=== PATIENT | female | born 1960 | race Caucasian/White ===

== ENCOUNTER 2022-08-17 09:08 | Outpatient (CLI) | payer OTHER, SELFPAY ==
--- OUTSIDE RECORDS SUMMARY | 2022-08-18 06:58 | XMS_ITS | Continuity of Care Document ---
Author Name Unknown Organization [facility] Address [address] [address] [place] [address] Phone Care Team Providers Care Manager Erp Name Role Phone Caenlo LUNA, Debbie Unavailable Unavailable Allergies, Adverse Reactions, Alerts Substance Reaction Status Criticality Penicillins unknown(moderate) Active No Informa tion Medications Medication Instructions Dosage Effective Dates (start - stop) Status Comments pantoprazole 40 mg tablet,delayed release take 1 tablet by oral route every day 40 MG - Active melatonin 10 mg tablet take 1 Tablet by Oral route once 1 Tablet - Active Super B Complex + C 150 mg tablet take 1 tablet by oral route every day - Active Co Q-10 200 mg capsule take 1 Tablet by Oral route every day 1 Tablet - Active flaxseed 1,000 mg capsule take 1 Capsule by Oral route every day - Active Vitamin D3 2,000 unit tablet take 1 Tablet by Oral route every day 1 Tablet - Active omega 7-ewr-qxx-fish oil 1,000 mg (120 mg-180 mg) capsule take by Oral route every day 800 mg Not Available - Active folic acid 400 mcg tablet take 1 tablet by oral route every day 0.4 MG - Active Ambien 10 mg tablet take 1 tablet by oral route every day at bedtime 10 MG - Active Aleve 220 mg tablet take 1 tablet by oral route every 12 hours as needed 220 MG - Active Glucosamine 500 mg tablet take 1 Tablet by Oral route every day 1 Tablet - Active Fiber Gummies (with chromium) 2 gram-100 mcg chewable tablet - Active Protonix 20 mg tablet,delayed release take 1 tablet by ORAL route 2 times every day 20 MG - No Longer Active Acidophilus capsule take 1 Capsule by Oral route every day 1 Capsule - No Longer Active Lexapro 10 mg tablet take 1 tablet by oral route every day 10 MG - No Longer Active Procedures Procedure Date Ugi Endo; W/bx 1/mx Level Iv-surg Path Gross/micro 16 Colonoscopy Flex; Dx (sep Pro) 15 Advance Directives Directive Yes / No Effective Date File Name No Information Encounters Encounter Description Practice Location Reason(s) For Visit Diagnoses Date Provider Providers Copied on Encounter [facility], [address] [address], [place], [id number], tel:[phone] [facility] Hiatal herniaHeartburnUnsp ecified abdominal painDiaphragmatic hernia without obstruction or gangrene 6 Canelo Lewis. [address] [facility], [facility] [address], [place], [place], [id number] , [place]. tel: [phone] [facility], [address] [address], [place], [place], [id number], tel:[phone] [facility] Screening for colon cancerColon Cancer Screening 5 Tiffani Maynard. [address] [facility], [facility] [address], [place], [place], [id number] , [place]. tel: [phone] Family History Family Member Type Diagnosis Age At Onset Mother Problem (finding) Alive and well Sister Problem (finding) Alive and well Brother Problem (finding) Daughter Problem (finding) Alive and well Brother Problem (finding) Alive and well Son Problem (finding) Alive and well Father Problem (finding) Leukemia Payers Payer name Insurance type Covered democrat ID Authoriza tion(s) [employer] [place] [id number] Social History Type Description Quantity Date Captured Comments Alcohol Use Details Unknown Caffeine Use Details Unknown Tobacco Use Status No Information Smoking Status Former smoker Sex Female Vital Signs Date / Time: Height Weight BMI Pulse Rate Blood Pressure Temperature Respiratory Rate Body Surface Area Head Circumference Head Circ. Percentile Wt./Mau. Percentile BMI percentile Pulse Ox Inhaled Ox 10:04 AM 68.00 in 77.100 kg (170.00 lbs) 25.8 0 kg/m eter (2) 69 /min 104/71 mm[Hg] 0.00 F 16 /min 100 % 10:45 AM 0.00 in 0.000 kg (0.00 lbs) 25.8 0 kg/m eter (2) 71 /min 114/68 mm[Hg] 0.00 F 16 /min 100 % Chief Complaint And Reason For Visit No Information Reason For Referral Reason For Referral No Information Plan Of Treatment Date Type Action Status No Information History Of Present Illness Encounter Date Complaint History Of Prese nt Illness No Information Functional Status Date Functional Assessmen t No Information Instructions Date Instruction Additional Infor dot Colon Cancer Prevention Related to Screening for colon cancer Hemorrhoids Related to Scree prasanna for colon cancer Assessments Type Assessment Date assessment Hiatal hernia Patient Care Teams Name Effective Dates (start - stop) Status Members No Information
== END 2022-08-17 09:09 | disposition home or self-care (01) ==
LOC: NFLDREF 08-18 06:56
PROVIDERS: PCP Physician Assistant Medical; Referring Provider Physician Assistant Medical; Visit Provider Physician Assistant Medical
DX: E78.5 Hyperlipidemia, unspecified (principal); E78.01 Familial hypercholesterolemia; E87.0 Hyperosmolality and hypernatremia; R73.03 Prediabetes; N39.0 Urinary tract infection, site not specified; G47.00 Insomnia, unspecified; F51.01 Primary insomnia; N30.00 Acute cystitis without hematuria; E04.1 Nontoxic single thyroid nodule
CPT/HCPCS: 80053; 80061

== ENCOUNTER 2022-09-02 09:37 | Outpatient (CLI) | payer OTHER, SELFPAY ==
[2022-09-02 21:30] LABS: Chlamydia DNA Amplified* NOT DETECTED (No Detected); GC DNA Amplified* NOT DETECTED (No Detected)
== END 2022-09-02 09:38 | disposition home or self-care (01) ==
PROVIDERS: PCP Physician Assistant Medical; Visit Provider Obstetrics & Gynecology
DX: N95.2 Postmenopausal atrophic vaginitis (principal); K64.4 Residual hemorrhoidal skin tags; Z11.3 Encounter for screening for infections with a predominantly sexual mode of transmission
CPT/HCPCS: 86592; 86703; 86706; 86803; 87340; 87491; 87591

== ENCOUNTER 2022-12-27 10:18 | Outpatient (CLI) | payer OTHER, SELFPAY ==
--- OUTSIDE RECORDS SUMMARY | 2022-12-30 07:32 | XMS_ITS | Continuity of Care Document ---
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 [address] [facility], [facility] [address], [place], [place], [id number] , [place]. tel: [phone] [facility], [address] [address], [place], [place], [id number], tel:[phone] [facility] Screening for colon cancerColon Cancer Screening 5 Tiffani Maynard. [address] [facility], [facility] [address], [place], [place], [id number] , [place]. tel: [phone] Family History Family Member Type Diagnosis Age At Onset Mother Problem (finding) Alive and well Sister Problem (finding) Alive and well Brother Problem (finding) Daughter Problem (finding) Alive and well Brother Problem (finding) Alive and well Son Problem (finding) Alive and well Father Problem (finding) Leukemia Payers Payer name Insurance type Covered green party ID Authoriza tion(s) [employer] [id number] Social History Type Description Quantity Date Captured [...] For Referral Reason For Referral No Information History Of Present Illness Encounter [...]
== END 2022-12-27 10:19 | disposition home or self-care (01) ==
LOC: NFLDREF 12-30 07:30
PROVIDERS: PCP Physician Assistant Medical; Referring Provider Physician Assistant Medical; Visit Provider Physician Assistant Medical
DX: E78.01 Familial hypercholesterolemia (principal)
CPT/HCPCS: 80061; 84450; 84460

== ENCOUNTER 2023-02-27 07:00 | Outpatient (CLI) | payer OTHER, SELFPAY ==
--- NOTE | 2023-02-27 07:15 | CRLHL7_ITS ---
For Patients: As a result of the Century Cures Act, medical imaging exams and procedure reports are released immediately into your electronic medical record. You may view this report before your referring provider. If you have questions, please contact your health care provider. INDICATION: Elevated liver function tests. TECHNIQUE: Right upper quadrant ultrasound. FINDINGS: There are 2 small well-circumscribed echogenic foci along the wall of the gallbladder which do not shadow or move. These likely reflect polyps. The largest measures 4.6 mm and the smaller measures 2.8 mm. Follow-up for gallbladder polyps less than 6 mm is not typically recommended. No stones. No gallbladder wall thickening. No pericholecystic fluid. No sonographic Roldan`s sign. The gallbladder wall measures 2 mm. The common bile duct measures 4 mm. The liver is normal without masses or biliary dilatation. The pancreas is unremarkable. The proximal IVC and proximal abdominal aorta are normal. The proximal abdominal aorta measures 2.2 cm in AP dimension. The right kidney is negative for hydronephrosis. It measures 11.8 x 4.4 x 5.0 cm. The right renal cortex measures 1.3 cm. IMPRESSION: 1. Two small echogenic non shadowing nonmobile foci in the gallbladder compatible with gallbladder polyps. 2. The examination is otherwise negative. Dictated by Ramesh Cabello MD @ 02/28/2023 10:02:28 AM (Electronically Signed)
--- NOTE | 2023-02-27 08:45 | CRLHL7_ITS ---
For Patients: As a result of the Century Cures Act, medical imaging exams and procedure reports are released immediately into your electronic medical record. You may view this report before your referring provider. If you have questions, please contact your health care provider. BILATERAL SCREENING MAMMOGRAM WITH COMPUTER-AIDED DETECTION AND TOMOSYNTHESIS TECHNIQUE: CC and MLO views were obtained. These mammographic images have been obtained using full-field digital technique. These mammographic images were interpreted with the benefit of computer-aided detection. Breast Tomosynthesis was used in this interpretation. COMPARISON FILM: 04/07/22, 10/16/20, 06/15/17. FINDINGS: The breasts are heterogeneously dense, which may obscure small masses IMPRESSION: There is no radiographic evidence for malignancy. ASSESSMENT: BI-RADS Category 2: Benign RECOMMENDATION: Routine screening mammogram in 1 year. A lay language report of this examination will be provided to the patient. Ramesh Cabello M.D. Diagnostic/Nuclear Medicine Radiologist [email or web address] LESLY/Dictated by: Ramesh Cabello MD @ 02/28/2023 8:41:00 AM (Electronically Signed)
== END 2023-02-27 07:01 | disposition home or self-care (01) ==
PROVIDERS: PCP Physician Assistant Medical; Visit Provider Physician Assistant Medical
DX: R79.89 Other specified abnormal findings of blood chemistry (principal); Z12.31 Encounter for screening mammogram for malignant neoplasm of breast; R92.2 Inconclusive mammogram
CPT/HCPCS: 76705; 77063; 77067

== ENCOUNTER 2023-05-03 15:08 | Emergency (ER) | payer OTHER, SELFPAY ==
[2023-05-03] VITALS (15 sets, daily range): BP systolic 115–150; BP diastolic 66–93; PULSE 59–68; RESP 18; TEMP 36.5; O2SAT 97–100; BMI 22.7
--- NOTE | 2023-05-03 15:50 | US_ITS ---
Patient: JOS TREVINO Facility:?[facility] Patient ID:?[id number] Site Patient ID:?[id number]. Site :?[id number] Study:?US-Abdomen GALLBLADDER-05/03/2023 4:36:48 PM Ordering Physician:TERRI MATHUR Final Report: Indication: Postprandial abdominal pain Technique: Multiple transverse and longitudinal sonographic grayscale images of the right upper quadrant of the abdomen were obtained, supplemented with color, power, and spectral Doppler imaging. Comparison: 02/27/2023 Findings: CBD: 0.3 cm. Gallbladder: Negative sonographic Roldan sign. Contracted. Multiple polyps are again seen measuring up to 0.3 centimeter. Impression: No sonographic evidence of acute cholecystitis. Gallbladder polyps measuring up to 0.3 centimeter. Dictated by Braulio Kuhn MD @ 05/03/2023 4:45:29 PM Signed by:?Braulio Kuhn MD @05/03/2023 4:45:29 PM (Electronic Signature)
--- NOTE | 2023-05-03 15:52 | ED_ITS ---
HPI - General Adult General Chief complaint: Unspecified Complaint, Adult <Mushtaq Buckley MD - Last Filed: 05/08/23 08:30> Stated complaint: dark urine, stomach pain <Mushtaq Buckley MD - Last Filed: 05/08/23 08:30> Time Seen by Provider: 05/03/23 15:25 <Mushtaq Buckley MD - Last Filed: 05/08/23 08:30> History of Present Illness HPI narrative: Patient is a 62 year white female with a history of intermittent epigastric pain after eating for the last couple of months on and off. 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 She gets occasional epigastric pain after she eats it is increasing in intensity and frequency. She apparently had an ultrasound done fairly recently that was unremarkable, with the exception of what appear to be gallbladder polyps. Certainly stone could not be excluded with these. There was no evidence of gallbladder distention or common duct distention. There was no gallbladder wall thickening or pericholecystic inflammation evident. The patient reports that this is become more frequent or she gets a postprandial epigastric pain and has had dark urine. 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 She has not had a history of jaundice not had a history of hepatitis. She has not traveled recently. She has had no significant weight loss by her history to me no chest pain, no shortness of breath, no fevers. <Mushtaq Buckley MD - Last Filed: 05/08/23 08:30> Related Data Home medications: Home Medications Medication Instructions Recorded Confirmed pseudoephedrine HCl 120 mg 120 mg PO Q12H 05/19/22 01/31/23 tablet,extended release (Sudafed 12 Hour) vitamin B comp and C no.3 15 mg-10 1 cap PO QDAY 05/19/22 01/31/23 mg-50 mg-5 mg-300 mg capsule (B Complex Plus Vitamin C) antiarthritic combination no.2 900 mg PO 07/20/22 01/31/23 mg tablet (glucosamine-chondroitin) cholecalciferol (vitamin D3) 25 50 mcg PO QDAY 07/20/22 01/31/23 mcg (1,000 unit) capsule magnesium citrate 100 mg capsule 100 mg PO QDAY 07/20/22 01/31/23 zinc gluconate 50 mg tablet 50 mg PO QDAY 07/20/22 01/31/23 cranberry extract 200 mg capsule 200 mg PO QDAY 09/02/22 01/31/23 gabapentin 300 mg capsule mg PO 09/02/22 01/31/23 turmeric 400 mg capsule mg PO 09/02/22 01/31/23 Previous Rx's Medication Instructions Recorded pantoprazole 20 mg tablet,delayed See Rx Instructions .Route 05/19/22 release .COMPLEX #90 tabs estradiol 0.01% (0.1 mg/gram) 0.5 g vaginal 2XW #42.5 grams 07/20/22 vaginal cream (Estrace) trazodone 50 mg tablet 50 - 150 mg (1 - 3 x 50 mg) PO 08/17/22 QDAY #90 tabs <Mushtaq Buckley MD - Last Filed: 05/08/23 08:30> Allergies/adverse reactions: Allergies Allergy/AdvReac Type Severity Reaction Status Date / Time Penicillins Allergy Unknown Verified 05/03/23 15:22 <Mushtaq Buckley MD - Last Filed: 05/08/23 08:30> Review of Systems Status of ROS: Reports: 6 or more systems reviewed and unremarkable except as noted in History and below <Mushtaq Buckley MD - Last Filed: 05/08/23 08:30> [facility] Medical History: Medical History (Updated 05/04/23 @ 10:39 by Kunal Alford PA-C) Elevated liver function tests ?R79.89 - Other specified abnormal findings of blood chemistry (ICD-10) Postprandial abdominal pain in right upper quadrant ?R10.11 - Right upper quadrant pain (ICD-10) Urinary tract infection ?N39.0 - Urinary tract infection, site not specified (ICD-10) History of depression ?Z86.59 - Personal history of other mental and behavioral disorders (ICD-10) History of breast lump ?Z87.898 - Personal history of other specified conditions (ICD-10) Arthritis ?M19.90 - Unspecified osteoarthritis, unspecified site (ICD-10) History of anxiety ?Z86.59 - Personal history of other mental and behavioral disorders (ICD-10) History of anemia ?Z86.2 - Personal history of diseases of the blood and blood-forming organs and certain disorders involving the immune mechanism (ICD-10) <Mushtaq Buckley MD - Last Filed: 05/08/23 08:30> Surgical History: Surgical History H/O wisdom tooth extraction ?K08.409 - Partial loss of teeth, unspecified cause, unspecified class (ICD- 10) H/O skin graft ?Z94.5 - Skin transplant status (ICD-10) H/O tubal ligation ?Z98.51 - Tubal ligation status (ICD-10) History of endoscopy ?Z98.890 - Other specified postprocedural states (ICD-10) History of lumpectomy ?Z98.890 - Other specified postprocedural states (ICD-10) History of endometrial ablation ?Z98.890 - Other specified postprocedural states (ICD-10) <Mushtaq Buckley MD - Last Filed: 05/08/23 08:30> Family History: Family History Father Leukemia, Onset Age: 50 Mother Varicose vein of leg High blood pressure Brother Diabetes <Mushtaq Buckley MD - Last Filed: 05/08/23 08:30> Social History: Social History Narrative: Former smoker, stopped smoking many years ago quit 2004. Drinks alcohol 1 glass of wine per day. 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 Smoking Status: Former smoker Do you use any of these nicotine containing products: None Second hand tobacco smoke exposure: No How often do you have a drink containing alcohol: monthly or less How often do you have six or more drinks on one occasion: Never AUDIT-C Alcohol total score: 1 Non-prescribed substance use: denies use service: No <Mushtaq Buckley MD - Last Filed: 05/08/23 08:30> Exam Narrative: Exam Narrative: Objective: Patient's vital signs are within normal limits O2 sat is excellent, afebrile HEENT shows mild scleral icterus No facial asymmetry Mouth clear Neck is supple Pulse regular Abdomen is benign soft there is mild epigastric tenderness palpation but no palpable mass no rebound or peritonitis Extremities are no edema neurologic nonfocal good peripheral perfusion noted Skin shows no evidence of rashing <Mushtaq Buckley MD - Last Filed: 05/08/23 08:30> Const: Vital Signs, click to edit/add: Vital Signs - 24 hr 05/03/23 15:17 05/03/23 16:34 05/03/23 16:35 Temperature 97.7 F Pulse Rate 64 65 Pulse Rate [Pulse Oximeter] 68 Respiratory Rate 18 Blood Pressure 131/69 Blood Pressure [Ri ght Upper Arm] 115/69 Pulse Oximetry 97 100 99 Oxygen Delivery Me thod Room Air 05/03/23 16:45 05/03/23 17:00 05/03/23 17:02 Temperature Pulse Rate 62 67 62 Pulse Rate [Pulse Oximeter] Respiratory Rate Blood Pressure 121/66 Blood Pressure [Ri ght Upper Arm] Pulse Oximetry 99 100 100 Oxygen Delivery Me thod 05/03/23 17:31 05/03/23 18:01 05/03/23 19:04 Temperature Pulse Rate Pulse Rate [Pulse Oximeter] Respiratory Rate Blood Pressure 124/72 116/67 125/76 Blood Pressure [Ri ght Upper Arm] Pulse Oximetry Oxygen Delivery Me thod 05/03/23 20:01 05/03/23 20:08 05/03/23 20:11 Temperature Pulse Rate 60 59 L Pulse Rate [Pulse Oximeter] Respiratory Rate Blood Pressure 133/74 139/77 Blood Pressure [Ri ght Upper Arm] Pulse Oximetry 97 97 Oxygen Delivery Me thod 05/03/23 20:12 05/03/23 21:02 05/03/23 22:02 Temperature Pulse Rate 60 Pulse Rate [Pulse Oximeter] Respiratory Rate Blood Pressure 150/93 H 127/79 Blood Pressure [Ri ght Upper Arm] Pulse Oximetry 97 Oxygen Delivery Me thod <Mushtaq Buckley MD - Last Filed: 05/08/23 08:30> Vital Signs, click to edit/add: Vital Signs - 24 hr 05/03/23 15:17 05/03/23 16:34 05/03/23 16:35 Temperature 97.7 F Pulse Rate 64 65 Pulse Rate [Pulse Oximeter] 68 Respiratory Rate 18 Blood Pressure 131/69 Blood Pressure [Ri ght Upper Arm] 115/69 Pulse Oximetry 97 100 99 Oxygen Delivery Me thod Room Air 05/03/23 16:45 05/03/23 17:00 05/03/23 17:02 Temperature Pulse Rate 62 67 62 Pulse Rate [Pulse Oximeter] Respiratory Rate Blood Pressure 121/66 Blood Pressure [Ri ght Upper Arm] Pulse Oximetry 99 100 100 Oxygen Delivery Me thod 05/03/23 17:31 05/03/23 18:01 05/03/23 19:04 Temperature Pulse Rate Pulse Rate [Pulse Oximeter] Respiratory Rate Blood Pressure 124/72 116/67 125/76 Blood Pressure [Ri ght Upper Arm] Pulse Oximetry Oxygen Delivery Me thod 05/03/23 20:01 05/03/23 20:08 05/03/23 20:11 Temperature Pulse Rate 60 59 L Pulse Rate [Pulse Oximeter] Respiratory Rate Blood Pressure 133/74 139/77 Blood Pressure [Ri ght Upper Arm] Pulse Oximetry 97 97 Oxygen Delivery Me thod 05/03/23 20:12 05/03/23 21:02 05/03/23 22:02 Temperature Pulse Rate 60 Pulse Rate [Pulse Oximeter] Respiratory Rate Blood Pressure 150/93 H 127/79 Blood Pressure [Ri ght Upper Arm] Pulse Oximetry 97 Oxygen Delivery Me thod <Steve Denny MD - Last Filed: 05/04/23 01:22> Course Course ED Course: Patient signed over to Dr. Denny at 4:15 p.m.. 62-year-old female with known known history of liver problems presenting to the ER today with abnormal LFTs. She apparently had liver function tests with transaminases in the range of 900 yesterday at the heard employer ([facility]). Previous LFTs dating back to last July were mildly abnormal. AST 42, ALT 41, alk-phos normal, bilirubin normal on 08/17/2022. On 12/27/2022 LFTs were slightly higher. AST 128, ALT 177. She has had a couple of months of postprandial upper abdominal pain getting steadily worse as time goes on. Stools have been more light colored urine has been more dark color for the past month or 2. She had a gallbladder ultrasound in February that showed gallbladder polyps. One would measured 4.6 mm. The other was 2.8 mm. No stones. Otherwise normal. Gallbladder wall is 2 mm. Liver normal. Pancreas normal. ED DATA: Right upper quadrant ultrasound Impression: No sonographic evidence of acute cholecystitis. Gallbladder polyps measuring up to 0.[address] abd pelvis with contrast The liver, gallbladder, spleen, pancreas, and bilateral adrenal glands are unremarkable. Impression: No CT evidence of an acute process involving the abdomen or pelvis. WBC 7.8, hemoglobin 11.6, platelet count 271 Differential shows 47% lymphs, 40% neutrophils CRP less than 0.5 Sodium 137, potassium 3.9, chloride 104, bicarb 26, BUN 11, creatinine 0.6, glucose 91 Bilirubin is abnormal at 3.8, direct is 2.8, indirect is 1.0 AST is 966, ALT 1097, alk-phos 190 Patient reviewed he medically stable here in the ER. We put a consult through the [facility] access center to discuss with GI. Discussed with Dr. Grant at about 7:45 p.m.. We discussed the patient's progressive symptoms for a couple of months, worsening labs. At this point the GI doctor does not have a specific opinion about disposition. He thinks if the patient is very stable, he can she could probably be seen in the [place] [facility] clinic within the next couple of weeks. Otherwise if were clinically concerned they would be happy to consult. Based on the patient's markedly abnormal labs and abdominal discomfort, I do think getting the workup done sooner than later, meaning an inpatient admission, is in her best interest. No open beds at [facility]. There is an open bed at [facility], in [place]. Discussed with the patient and her . They are agreeable to transfer to [facility]. Patient was accepted by the hospitalist at [facility], Dr. Zapata. Discussed transfer to [facility] and patient and are in agreement. They do not want to go by ambulance. They will go by private car. At this point she is not hypotensive or septic or altered. Transfer by prior car is reasonable. <Steve Denny MD - Last Filed: 05/04/23 01:22> Vital Signs Vital signs: Initial Vital Signs Temperature 97.7 F 05/03/23 15:17 Temperature Source Temporal Artery Scan 05/03/23 15:17 Pulse Rate 68 05/03/23 15:17 Pulse Rhythm Regular 05/03/23 15:17 Respiratory Rate 18 05/03/23 15:17 Blood Pressure 115/69 05/03/23 15:17 Blood Pressure Mean 84 05/03/23 15:17 Blood Pressure Position Sitting 05/03/23 15:17 Pulse Oximetry 97 05/03/23 15:17 Oxygen Delivery Method Room Air 05/03/23 15:17 Vital Signs Temperature 97.7 F 05/03/23 15:17 Pulse Rate 68 05/03/23 15:17 Respiratory Rate 18 05/03/23 15:17 Blood Pressure 115/69 05/03/23 15:17 Pulse Oximetry 97 05/03/23 15:17 Oxygen Delivery Method Room Air 05/03/23 15:17 Temperature 97.7 F 05/03/23 15:17 Pulse Rate 60 05/03/23 20:12 Respiratory Rate 18 05/03/23 15:17 Blood Pressure 127/79 05/03/23 22:02 Pulse Oximetry 97 05/03/23 20:12 Oxygen Delivery Method Room Air 05/03/23 15:17 <Mushtaq Buckley MD - Last Filed: 05/08/23 08:30> Initial Vital Signs Temperature 97.7 F 05/03/23 15:17 Temperature Source Temporal Artery Scan 05/03/23 15:17 Pulse Rate 68 05/03/23 15:17 Pulse Rhythm Regular 05/03/23 15:17 Respiratory Rate 18 05/03/23 15:17 Blood Pressure 115/69 05/03/23 15:17 Blood Pressure Mean 84 05/03/23 15:17 Blood Pressure Position Sitting 05/03/23 15:17 Pulse Oximetry 97 05/03/23 15:17 Oxygen Delivery Method Room Air 05/03/23 15:17 Vital Signs Temperature 97.7 F 05/03/23 15:17 Pulse Rate 68 05/03/23 15:17 Respiratory Rate 18 05/03/23 15:17 Blood Pressure 115/69 05/03/23 15:17 Pulse Oximetry 97 05/03/23 15:17 Oxygen Delivery Method Room Air 05/03/23 15:17 Temperature 97.7 F 05/03/23 15:17 Pulse Rate 60 05/03/23 20:12 Respiratory Rate 18 05/03/23 15:17 Blood Pressure 127/79 05/03/23 22:02 Pulse Oximetry 97 05/03/23 20:12 Oxygen Delivery Method Room Air 05/03/23 15:17 <Steve Denny MD - Last Filed: 05/04/23 01:22> Medications Administered Medications: Discontinued Medications Generic Name Dose Route Start Last Admin Trade Name Freq PRN Reason Stop Dose Admin Sodium Chloride 1,000 mls @ 6,000 mls/hr 05/03/23 16:00 05/03/23 17:59 0.9 % Sodium Chloride 1000 Ml IV 05/03/23 16:09 Infused .Q10M JOSE Infusion <Mushtaq Buckley MD - Last Filed: 05/08/23 08:30> Discontinued Medications Generic Name Dose Route Start Last Admin Trade Name Freq PRN Reason Stop Dose Admin Sodium Chloride 1,000 mls @ 6,000 mls/hr 05/03/23 16:00 05/03/23 17:59 0.9 % Sodium Chloride 1000 Ml IV 05/03/23 16:09 Infused .Q10M JOSE Infusion <Steve Denny MD - Last Filed: 05/04/23 01:22> Medical Decision Making [facility] Narrative Medical decision making narrative: [age] year white female with a history of gallbladder polyps on ultrasound a couple of months ago, 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 I think repeating an ultrasound might make sense at this point to see if there is any evidence of acute cholecystitis, check her laboratory studies, repeat her liver function test. Check her white count and CRP. Will give her some IV fluid. Will also send off a hepatitis profile. Change of shift and Dr. Denny will follow up the lab studies and disposition. <Mushtaq Buckley MD - Last Filed: 05/08/23 08:30> Lab Data Labs: Lab Results 05/03/23 05/03/23 05/03/23 Range/Units 15:40 15:57 16:20 WBC 7.86 (4.50-11.00) K/uL RBC 3.71 L (4.00-5.20) m/uL Hgb 11.6 L (12.0-16.0) gm/dL Hct 33.6 (33.0-51.0) % MCV 91 (80-100) fL MCH 31 (26-34) pg MCHC 35 (32-36) gm/dL RDW Coeff of [place] 16.8 H (11.5-15.5) % Plt Count 271 (140-440) K/uL Neut % (Auto) 40.2 L (42.0-72.0) % Lymph % (Auto) 47.7 H (20-44) % Pender % (Auto) 9.5 (0.0-11.0) % Eos % (Auto) 1.5 (0.0-7.0) % Baso % (Auto) 1.0 (0.0-3.0) % Neut # (Auto) 3.20 (1.7-7.0) K/uL Lymph # (Auto) 3.70 H (0.90-2.90) K/uL Pender # (Auto) 0.70 (0.00-0.90) K/UL Eos # (Auto) 0.12 (0.00-0.50) K/uL Baso # (Auto) 0.08 (0.00-0.30) K/uL Abs Immat Gran (auto) 0.01 (0.00-0.30) K/uL Imm/Tot Granulo (auto) 0.1 % Sodium 137 (135-149) mmol/L Potassium 3.9 (3.6-5.1) mmol/L Chloride 104 (96-114) mmol/L Carbon Dioxide 26 (20-32) mmol/L Anion Gap 7 (7-15) mEq/L BUN 11 (7-30) mg/dL Creatinine 0.6 (0.5-1.5) mg/dL Estimated Creat Clear 57.45 Estimated GFR 102 ml/min Glucose 91 (60-115) mg/dL Calcium 9.0 (8.4-10.6) mg/dL Total Bilirubin 3.8 H (0.1-1.5) mg/dL Direct Bilirubin 2.8 H (0.0-0.5) mg/dL AST 966 H (12-35) U/L ALT 1097 H (4-35) U/L Alkaline Phosphatase 190 H (40-150) U/L C-Reactive Protein < 0.5 L (0.5-1.0) mg/dL Total Protein 7.1 (6.0-8.3) g/dL Albumin 3.9 (3.3-5.0) g/dL Amylase 66 (18-89) U/L Lipase 163 (23-300) U/L Urine Color Yellow (Yellow) Urine Appearance Clear (Clear) Urine pH 5.5 (5.0-8.5) Ur Specific [place] 1.010 (1.000-1.030) Urine Protein Negative (Negative) Urine Glucose (UA) Negative (Negative) Urine Ketones Negative (Negative) Urine Blood Negative (Negative) Urine Nitrite Negative (Negative) Urine Bilirubin Negative (Negative) Urine Urobilinogen 0.2 (0.2-1.0) Ur Leukocyte Esterase Negative (Negative) Urine RBC 0-2 (0-2) Urine WBC 0-2 (0-5) Ur Squamous Epith Cells None (None-Few) Urine Bacteria None (None) Hepatitis A IgM Ab Negative (Negative) Hep Bs Antigen Negative (Negative) Hep B Core IgM Ab Negative (Negative) Hep C Ab Index (RONI) 0.04 IV Hep C Ab Interp RONI Negative (Negative) Hepatitis Interpret See Note <Mushtaq Buckley MD - Last Filed: 05/08/23 08:30> Lab Results 05/03/23 05/03/23 05/03/23 Range/Units 15:40 15:57 16:20 WBC 7.86 (4.50-11.00) K/uL RBC 3.71 L (4.00-5.20) m/uL Hgb 11.6 L (12.0-16.0) gm/dL Hct 33.6 (33.0-51.0) % MCV 91 (80-100) fL MCH 31 (26-34) pg MCHC 35 (32-36) gm/dL RDW Coeff of [place] 16.8 H (11.5-15.5) % Plt Count 271 (140-440) K/uL Neut % (Auto) 40.2 L (42.0-72.0) % Lymph % (Auto) 47.7 H (20-44) % Pender % (Auto) 9.5 (0.0-11.0) % Eos % (Auto) 1.5 (0.0-7.0) % Baso % (Auto) 1.0 (0.0-3.0) % Neut # (Auto) 3.20 (1.7-7.0) K/uL Lymph # (Auto) 3.70 H (0.90-2.90) K/uL Pender # (Auto) 0.70 (0.00-0.90) K/UL Eos # (Auto) 0.12 (0.00-0.50) K/uL Baso # (Auto) 0.08 (0.00-0.30) K/uL Abs Immat Gran (auto) 0.01 (0.00-0.30) K/uL Imm/Tot Granulo (auto) 0.1 % Sodium 137 (135-149) mmol/L Potassium 3.9 (3.6-5.1) mmol/L Chloride 104 (96-114) mmol/L Carbon Dioxide 26 (20-32) mmol/L Anion Gap 7 (7-15) mEq/L BUN 11 (7-30) mg/dL Creatinine 0.6 (0.5-1.5) mg/dL Estimated Creat Clear 57.45 Estimated GFR 102 ml/min Glucose 91 (60-115) mg/dL Calcium 9.0 (8.4-10.6) mg/dL Total Bilirubin 3.8 H (0.1-1.5) mg/dL Direct Bilirubin 2.8 H (0.0-0.5) mg/dL AST 966 H (12-35) U/L ALT 1097 H (4-35) U/L Alkaline Phosphatase 190 H (40-150) U/L C-Reactive Protein < 0.5 L (0.5-1.0) mg/dL Total Protein 7.1 (6.0-8.3) g/dL Albumin 3.9 (3.3-5.0) g/dL Amylase 66 (18-89) U/L Lipase 163 (23-300) U/L Urine Color Yellow (Yellow) Urine Appearance Clear (Clear) Urine pH 5.5 (5.0-8.5) Ur Specific [place] 1.010 (1.000-1.030) Urine Protein Negative (Negative) Urine Glucose (UA) Negative (Negative) Urine Ketones Negative (Negative) Urine Blood Negative (Negative) Urine Nitrite Negative (Negative) Urine Bilirubin Negative (Negative) Urine Urobilinogen 0.2 (0.2-1.0) Ur Leukocyte Esterase Negative (Negative) Urine RBC 0-2 (0-2) Urine WBC 0-2 (0-5) Ur Squamous Epith Cells None (None-Few) Urine Bacteria None (None) Hepatitis A IgM Ab Negative (Negative) Hep Bs Antigen Negative (Negative) Hep B Core IgM Ab Negative (Negative) Hep C Ab Index (RONI) 0.04 IV Hep C Ab Interp RONI Negative (Negative) Hepatitis Interpret See Note <Steve Denny MD - Last Filed: 05/04/23 01:22> Discharge Plan Discharge Clinical Impression: Postprandial abdominal pain in right upper quadrant, Elevated liver function tests <Mushtaq Buckley MD - Last Filed: 05/08/23 08:30> Patient Disposition: Xfer Other <Mushtaq Buckley MD - Last Filed: 05/08/23 08:30> Prescriptions: No Action glucosamine-chondroitin 900 mg tablet PO magnesium citrate 100 mg capsule 100 mg PO QDAY zinc gluconate 50 mg tablet 50 mg PO QDAY estradiol [Estrace] 0.01 % (0.1 mg/gram) cream 0.5 g vaginal 2XW Qty: 42.5 3RF Rx Instructions: Use nightly for 2 weeks, then twice weekly. May apply with finger. trazodone 50 mg tablet 50 - 150 mg PO QDAY Qty: 90 3RF pseudoephedrine HCl [Sudafed 12 Hour] 120 mg tablet extended release 120 mg PO Q12H B Complex Plus Vitamin C 49-33-46-5-300 mg capsule 1 cap PO QDAY Rx Instructions: give with food (meal/snack) pantoprazole 20 mg tablet,delayed release (DR/EC) See Rx Instructions .ROUTE .COMPLEX Qty: 90 3RF Dose Instruction: TAKE 1 TABLET DAILY Rx Instructions: TAKE 1 TABLET DAILY. cholecalciferol (vitamin D3) 25 mcg (1,000 unit) capsule 50 mcg PO QDAY cranberry extract 200 mg capsule 200 mg PO QDAY Rx Instructions: administer with a meal gabapentin 300 mg capsule PO turmeric 400 mg capsule PO <Mushtaq Buckley MD - Last Filed: 05/08/23 08:30> Stand Alone Forms: MyHealth Info Instructions <Mushtaq Buckley MD - Last Filed: 05/08/23 08:30>
[2023-05-03 16:00] LABS: Appearance Urine Clear (Clear); Bilirubin Urine Negative (Negative); Blood Urine Negative (Negative); Color Urine Yellow (Yellow); Glucose Urine Negative (Negative); Ketones Urine Negative (Negative); Leukocyte Esterase Urine Negative (Negative); Nitrite Urine Negative (Negative); Protein Urine Negative (Negative); Urobilinogen Urine 0.2 (0.2-1.0); pH Urine 5.5 (5.0-8.5)
--- NOTE | 2023-05-03 16:12 | CT_ITS ---
Patient: JOS TREVINO Facility:?[facility] Patient ID:?[id number] Site Patient ID:?[id number]. Site :?[id number] Study:?CT-Abdomen/Pelvis W/ ISOVUE 370-05/03/2023 5:25:29 PM Ordering Physician:JOLIE Final Report: Indication: Abdominal pain Technique: CT abdomen/pelvis with IV contrast, 71 mL Isovue 370 Comparison: Same day abdominal ultrasound Findings: The visualized lower thorax is unremarkable. The liver, gallbladder, spleen, pancreas, and bilateral adrenal glands are unremarkable. The kidneys, ureters, bladder, uterus, and bilateral adnexa are unremarkable. No evidence of bowel obstruction or inflammation. The appendix is not discretely visualized; however, there are no inflammatory changes in the right lower quadrant to suggest acute appendicitis. There are some scattered colonic diverticula without CT evidence of acute diverticulitis. No free fluid or free air. No abdominal or pelvic abscess. No pathologically enlarged lymph nodes throughout the abdomen or pelvis. No abdominal aortic aneurysm. Mild calcific atherosclerosis of the abdominal aorta. No acute fracture or malalignment. There are some degenerative changes in the lumbar spine. Impression: No CT evidence of an acute process involving the abdomen or pelvis. Please note that all CT scans at this facility use dose modulation, iterative reconstruction, and/or weight-based dosing when appropriate to reduce radiation dose to as low as reasonably achievable. Dictated by Niko Carter MD @ 05/03/2023 5:53:37 PM Signed by:?Niko Carter MD @05/03/2023 5:53:37 PM (Electronic Signature)
[2023-05-03 16:21] LABS: RBC Urine 0-2 (0-2); WBC Urine 0-2 (0-5)
[2023-05-03] MEDS: 0.9 % SODIUM CHLORIDE 1000 ml 1,000 ML 6000 ML IV (16:24)
[2023-05-03 16:27] LABS: Basophils Absolute Auto 0.08 K/uL (0.00-0.30); Eosinophils Absolute Auto 0.12 K/uL (0.00-0.50); Eosinophils Percent Auto 1.5 % (0.0-7.0); Hematocrit 33.6 % (33.0-51.0); Hemoglobin* 11.6 gm/dL (12.0-16.0); Immature Granulocytes Abs Auto 0.01 K/uL (0.00-0.30); Immature Granulocytes Pct Auto 0.1 %; Lymphocytes Percent Auto 47.7 % (20-44); Mean Corpuscular HGB Conc 35 gm/dL (32-36); Mean Corpuscular Hemoglobin 31 pg (26-34); Mean Corpuscular Volume 91 fL (80-100); Monocytes Percent Auto 9.5 % (0.0-11.0); Neutrophils Percent Auto 40.2 % (42.0-72.0); Platelet Count* 271 K/uL (140-440); RDW Coefficient of Variation % 16.8 % (11.5-15.5); Red Blood Count 3.71 m/uL (4.00-5.20); White Blood Count* 7.86 K/uL (4.50-11.00)
[2023-05-03 16:29] LABS: Slide Review Reflex No
[2023-05-03 16:42] LABS: Chloride* 104 mmol/L (96-114); Sodium* 137 mmol/L (135-149)
[2023-05-03 16:43] LABS: Albumin* 3.9 g/dL (3.3-5.0); Potassium* 3.9 mmol/L (3.6-5.1)
[2023-05-03 16:45] LABS: Amylase* 66 U/L (18-89); Creatinine* 0.6 mg/dL (0.5-1.5); Est. Creatinine Clearance* 57.45; Estimated Glomerular Filt Rate 102 ml/min
[2023-05-03 16:46] LABS: Alkaline Phosphatase* 190 U/L (40-150); Anion Gap 7 mEq/L (7-15); Bilirubin Direct* 2.8 mg/dL (0.0-0.5); Bilirubin Total* 3.8 mg/dL (0.1-1.5); Blood Urea Nitrogen* 11 mg/dL (7-30); Carbon Dioxide* 26 mmol/L (20-32); Glucose* 91 mg/dL (60-115); Total Protein* 7.1 g/dL (6.0-8.3)
[2023-05-03 16:47] LABS: Lipase* 163 U/L (23-300)
[2023-05-03 16:51] LABS: C Reactive Protein* < 0.5 mg/dL (0.5-1.0)
[2023-05-03 17:08] LABS: Aspartate Amino Transferase* 966 U/L (12-35)
[2023-05-03 17:28] LABS: Alanine Aminotransferase* 1097 U/L (4-35)
[2023-05-05 17:29] LABS: Hep A Ab, IgM Negative (Negative); Hep B Core Ab, IgM Negative (Negative); Hep B Surface Antigen Negative (Negative); Hep C Ab by CIA Index 0.04 IV; Hep C Ab by CIA Interp Negative (Negative)
== END 2023-05-03 22:43 | disposition other institution (70) ==
PROVIDERS: Family Medicine; Emergency Provider Emergency Medicine; PCP Physician Assistant Medical
DX: R10.11 Right upper quadrant pain (principal); R94.5 Abnormal results of liver function studies
CPT/HCPCS: 36415; 74177; 76705; 80048; 80074; 80076; 81001; 82150; 83690; 85025; 86140; 87086; 99285; J7030; Q9967

== ENCOUNTER 2024-12-19 16:37 | Outpatient (CLI) | payer BC, SELFPAY ==
--- NOTE | 2024-12-19 16:45 | CRLHL7_ITS ---
For Patients: As a result of the Century Cures Act, medical imaging exams and procedure reports are released immediately into your electronic medical record. You may view this report before your referring provider. If you have questions, please contact your health care provider. Indication: LINGERING COUGH. HX OF SMOKING Technique: Noncontrast CT chest Please note that all CT scans at this facility use dose modulation, iterative reconstruction, and/or weight-based dosing when appropriate to reduce radiation dose to as low as reasonably achievable. Comparison: 04/12/2021 Findings: Small bilateral nodules are unchanged, including a 5 millimeter nodule within the lingula, . No new nodule. No infiltrate or edema. No effusion or pneumothorax. No pulmonary fibrosis. Incidental subpleural scar in the right middle lobe, . No pleural effusion or pulmonary edema. No pneumothorax. No fracture. No mediastinal, hilar or axillary adenopathy. Upper abdomen unremarkable. Impression: Stable bilateral nodules. No airspace disease or fibrosis. No adenopathy. Please note that all CT scans at this facility use dose modulation, iterative reconstruction, and/or weight-based dosing when appropriate to reduce radiation dose to as low as reasonably achievable. Dictated by Roverto Kearney MD @ 12/20/2024 12:40:53 PM (Electronically Signed)
== END 2024-12-19 16:38 | disposition home or self-care (01) ==
LOC: CT 16:37
PROVIDERS: PCP Physician Assistant Medical; Visit Provider Physician Assistant Medical
DX: R05.9 Cough, unspecified (principal); R91.8 Other nonspecific abnormal finding of lung field; Z87.891 Personal history of nicotine dependence
CPT/HCPCS: 71250